=== PATIENT | male | born 1985 | race African-American/Black ===

== ENCOUNTER 2023-06-01 07:50 | Emergency (ER) | payer MEDICAID ==
[~2023-06-01] VITALS: Ht 200.7 cm; Wt 91.0 kg
[2023-06-01 07:59] VITALS: TEMP 98.6; O2SAT 97
[2023-06-01] MEDS ORDERED: ACETAMINOPHEN 325MG TABLET PO ONE (09:15)
[2023-06-01] MEDS ORDERED: TETANUS, DIPHTHERIA, PERTUSSIS VAC/PF 0.5ML (>10YR OLD) IM ONE (09:15)
[2023-06-01 09:36] LABS: BASOPHILS % 0.2 % (0.0-2.0); DIFFERENTIAL COMMENT 0; HEMATOCRIT. 46.1 % (42.0-52.0); HEMOGLOBIN. 15.3 g/dL (14.0-18.0); LYMPHOCYTES % 8.5 % (20.0-50.0); MEAN CORPUSCULAR HEMOGLOBIN 25.8 pg (28.0-32.0); MEAN CORPUSCULAR HGB CONC 33.1 g/dL (31.0-37.0); MEAN CORPUSCULAR VOLUME 77.8 fL (80.0-94.0); MEAN PLATELET VOLUME 8.1 fl (7.4-10.4); MONOCYTES % 8.7 % (2.0-8.0); NEUTROPHILS % 82.6 % (40.0-76.0); PLATELET 239 x1000/uL (130-400); RED BLOOD CELL COUNT 5.93 mill/uL (4.7-6.1); RED CELL DISTRIBUTION WIDTH 13.4 % (11.6-14.6)
[2023-06-01 09:46] LABS: CHLORIDE 106 mEq/L (98-107); INDEX HEMOLYSI 1 (1-3); INDEX ICTERIC 1 (1-4); INDEX LIPEMIC 1 (1-3); POTASSIUM 3.6 mEq/L (3.5-5.1); SODIUM 138 mEq/L (136-145)
[2023-06-01 09:48] LABS: PROTHROMBIN TIME 10.9 sec (9.6-11.0)
[2023-06-01 09:57] LABS: ALANINE AMINOTRANSFERASE 35 IU/L (13-61); ASPARTATE AMINOTRANSFERASE 38 IU/L (15-37); BILIRUBIN TOTAL 1.2 mg/dL (0.1-1.0); CALCIUM 8.4 mg/dL (8.5-10.1); CARBON DIOXIDE 25 mEq/L (21-32); CREATININE 0.8 mg/dL (0.6-1.3); GLUCOSE 100 mg/dL (70-105); UREA NITROGEN BLOOD 16 mg/dL (7-21)
[2023-06-01] MEDS ORDERED: LIDOCAINE HCL 1% 20ML VIAL (Pyxis) INJ INFIL ONE (11:00)
[2023-06-01] MEDS ORDERED: TOPUD MT (13:56)
[2023-06-01] MEDS ORDERED: IBUP-1525 MT (13:56)
[2023-06-01 14:36] VITALS: BP 119/71; PULSE 78; RESP 14
[2023-06-01] MEDS ORDERED: BACITRACIN 15GM TUBE TOP ONE (15:15)
== END 2023-06-01 14:37 | disposition home or self-care (01) ==
LOC: ER 08:24
DX: S01.112A Laceration without foreign body of left eyelid and periocular area, initial encounter (principal); R51.9 Headache, unspecified; Y04.0XXA Assault by unarmed brawl or fight, initial encounter; Y93.89 Activity, other specified; Y92.89 Other specified places as the place of occurrence of the external cause; Y99.8 Other external cause status
CPT/HCPCS: 80053; 85025; 85610; 36415; 71045; 73030; 70450; 90715; 12014; 90471; 99291; J3490; Z7610 ×4